=== PATIENT | female | born 1975 | race Two or more races ===

== ENCOUNTER → 2025-04-06 | Outpatient (CLI) | payer BC, SELFPAY ==
--- NOTE | 2025-04-06 08:00 | XR_ITS ---
Examination: Screening digital mammography, bilateral Computer aided detection 3-D breast Tomosynthesis, bilateral Date and time of exam: April 06, 2025 0756 hours Compared to mammograms dating to June 09, 2019 Indication: Screening Technique: Nonmagnified MLO, CC views of the breasts to been obtained, reconstructed from 3-D Tomosynthesis images. R2 computer aided detection program utilized for evaluation of suspicious masses and/or abnormal calcifications. 3-D Tomosynthesis images obtained. Findings: Scattered areas of fibroglandular density. Intact appearing implants. No interval suspicious masses Impression: BI-RADS category II: Benign Findings. Recommend 1 year follow-up mammogram.
== END | disposition home or self-care (01) ==
LOC: CDIM 07:49
PROVIDERS: Referring Provider Physician Assistant Medical; Visit Provider Physician Assistant Medical
DX: Z12.31 Encounter for screening mammogram for malignant neoplasm of breast (principal); R92.323 Mammographic fibroglandular density, bilateral breasts; Z98.82 Breast implant status
CPT/HCPCS: 77063; 77067

== ENCOUNTER 2025-04-10 08:00 | Emergency (ER) | payer BC, SELFPAY ==
[2025-04-10 08:09] VITALS: BP 121/77; PULSE 74; RESP 17; TEMP 36.6; O2SAT 100
--- NOTE | 2025-04-10 08:13 | XR_ITS ---
Examination: CT abdomen and pelvis without contrast. Coronal 3-D reconstructions. Sagittal 2-D reconstructions. Date and time of exam:April 10, 2025 0825 hours INDICATIONS: Onset left-sided flank pain nausea vomiting today CTDI: vol (mGy): 8.96 DLP: (mGycm): 479 Technique: Axial images of the abdomen have been obtained, 3 mm slice thickness Intravenous contrast material has not been administered. Low dose protocols were performed. One or more of the following dose reduction techniques were used; automated exposure control, adjustment of the mA and/or KV according to patient size, use of iterative reconstruction technique. Findings: No focal liver or splenic lesions No gallstones No pancreatic or adrenal mass Tiny 1 to 3 mm bilateral renal calculi Minimal left hydronephrosis secondary to 3 mm proximal left ureteral calculus No bowel obstruction No CT findings of appendicitis or diverticulitis No bladder calculi IMPRESSION: Minimal left hydronephrosis secondary to 3 mm proximal left ureteral calculus
[2025-04-10 08:14] VITALS: BMI 26.1
--- NOTE | 2025-04-10 08:14 | PD.EDRME ---
Rapid Medical Screening Exam RME Arrival date/time: 04/10/25 08:00 49-year-old female presents to the emergency department today for complaints of left flank pain Chief Complaint: Abdominal Pain Time Seen by Provider: 04/10/25 08:05 Vital signs: Vital Signs Temperature 97.8 F 04/10/25 08:09 Pulse Rate 74 04/10/25 08:09 Respiratory Rate 17 04/10/25 08:09 Blood Pressure 121/77 04/10/25 08:09 Pulse Oximetry (%) 100 04/10/25 08:09 Oxygen Delivery Method Room Air 04/10/25 08:09
[2025-04-10] MEDS: HYDROcodone/APAP 5/325 TABLET 1 TAB PO (08:18)
[2025-04-10] MEDS: ONDANSETRON ODT 4 MG TABRAP PO (08:19)
[2025-04-10] MEDS: KETOROLAC INJ 30 MG/ML VIAL IM (08:19)
--- NOTE | 2025-04-10 09:15 | PC.NURSE ---
PATIENT BROUGHT TO ROOM WITH COMPLAINT OF PAIN TO LOWER LEFT QUADRANT PAIN SINCE THIS MORNING. PATIENT STATES SHE HAD SUDDEN ONSET OF PAIN. NAUSEA AND VOMITING X 1. IV ESTABLISHED, PATIENT STATES PAIN HAS DECREASED FOLLOWING IM MEDICATION. WILL CONTINUE TO MONITOR
[2025-04-10 09:17] LABS: Basophils # (Auto) 0.1 Thou/mm3 (0.0-0.2); Basophils % (Auto) 0 % (0-2.5); Eosinophils # (Auto) 0.1 Thou/mm3 (0.0-0.5); Eosinophils % (Auto) 1 % (0-10); Hematocrit 40.3 % (36.0-46.0); Hemoglobin 14.1 g/dL (12.0-16.0); Immature Granulocytes % (Auto) 0 % (0-0); Immature Granulocytes Auto 0.05 Thou/mm3 (0.00-0.00); Lymphocytes # (Auto) 1.5 Thou/mm3 (1.0-4.8); Lymphocytes % (Auto) 13 % (10-50); Mean Corpuscular Hemoglobin 29.1 pg (25.0-35.0); Mean Corpuscular Volume 83 fL (80-100); Monocytes # (Auto) 0.5 Thou/mm3 (0.0-0.8); Monocytes % (Auto) 5 % (0-12); Neutrophils # (Auto) 9.3 Thou/mm3 (1.8-7.7); Neutrophils % (Auto) 81 % (37-80); Nucleated Red Blood Cell % 0 /100 WBC (0); Platelet Count 300 Thou/mm3 (140-440); RDW Standard Deviation 41.6 fL (36.4-46.3); Red Blood Count 4.85 Miln/mm3 (4.00-5.20); White Blood Count 11.4 Thou/mm3 (3.6-11.0)
[2025-04-10 09:25] LABS: Alanine Aminotransferase 10 U/L (10-49); Albumin, Serum 4.7 gm/dL (3.5-5.0); Albumin/Globulin Ratio 2.1 (1.2-2.2); Alkaline Phosphatase 72 U/L (46-116); Anion Gap 11 (7-16); Aspartate Amino Transferase 17 U/L (0-34); BUN/Creatinine Ratio 11 Ratio (12-20); Bilirubin,Total 1.2 mg/dL (0.3-1.2); Blood Urea Nitrogen 12 mg/dL (9-23); Calcium 9.8 mg/dL (8.3-10.6); Calcium (Corrected) 9.8 mg/dL (8.5-10.1); Carbon Dioxide 21.7 mMol/L (20.0-31.0); Chloride 106 mMol/L (98-107); Creatinine (Component) 1.1 mg/dL (0.6-1.3); Estimated Creatinine Clearance 64.2 mL/min (>60); Globulin 2.2 gm/dL (2.3-3.5); Glucose 119 mg/dL (74-106); Lipase 34 U/L (12-53); Osmolality,Calculated 278 (275-295); Potassium 4.1 mMol/L (3.4-5.1); Sodium 139 mMol/L (136-145); Total Protein 6.9 gm/dL (5.7-8.2); eGFR > 60 See Note
[2025-04-10 10:12] VITALS: BP 126/82; PULSE 73; RESP 17; TEMP 36.6; O2SAT 97
--- NOTE | 2025-04-10 10:17 | EDNOTE_ITS ---
ED General RME/HPI General Chief complaint: Abdominal Pain Stated complaint: Vomiting today, Left side abdominal pain/flank Time Seen by Provider: 04/10/25 08:05 Arrival date/time: 04/10/25 08:00 RME / HPI RME / HPI narrative: 04/10/25 08:00 49-year-old female presents to the emergency department today for complaints of left flank pain DR. DEE MAIN ED EVALUATION: 49 year old female with past medical history significant for appendectomy presents to the Emergency Department accompanied by her with complaint of left flank pain since 630 AM today. Associated symptoms include nausea and vomiting. No other symptoms reported at this time. Related Data Previous Rx's ?Medication ?Instructions ?Recorded hydrocodone 5 mg-acetaminophen 325 1 tab PO Q6H PRN pa in #14 tabs 04/10/25 mg tablet ondansetron 4 mg disintegrating 4 mg PO Q6H PRN nausea and 04/10/25 tablet vomiting #20 tabs Allergies Allergy/AdvReac Type Severity Reaction Status Date / Time NKA Allergy Unknown Uncoded 04/10/25 08:05 No Known Allergies Allergy Unknown Uncoded 04/10/25 08:05 Review of Systems Review of Systems Systems Reviewed: All systems reviewed, normal except as documented Narrative Review of Systems: Constitutional: DENIES: fevers; Eyes: DENIES: loss of vision; Head/Ear/Nose: DENIES: loss of hearing. Throat: DENIES: dysphagia. Cardiovascular: DENIES: chest pain, dyspnea, or syncope. Respiratory: DENIES: shortness of breath; Gastrointestinal: POSITIVES: left flank pain, nausea, and vomiting DENIES: rectal bleeding or melena. Genitourinary: DENIES: dysuria (painful or difficult urination); Musculoskeletal: DENIES: arthralgia (pain in a joint); Skin: DENIES: rash; Neurological: DENIES: loss of function or movement; Psychiatric: DENIES: recent major life stressor, emotional problem, illicit drug use or abuse; Endocrinology: DENIES: weight change,; Hematologic/Lymphatic: DENIES: abnormal bruising. Allergic/Immunologic: DENIES: urticaria (hives). Past Medical History Social History SMOKING STATUS: Never smoker SUBSTANCE USE: does not use ALCOHOL: Never ED Exam Narrative Physical exam: Physical Exam: General: The vital signs were reviewed. The patient is non-toxic, in no apparent distress and appears healthy with a patent airway, no respiratory distress and has no apparent circulatory problems. Head & Scalp: Normocephalic, atraumatic. Face: Appears normal and is without lesions, deformity. Ears: Left external pinna appears normal. Right external pinna appears normal. Eyes: The sclera is anicteric. No obvious photophobia. The Left and Right Orbit/Lid/Conjunctiva appears normal without swelling, discoloration or injection. Nose: The nose is without deformity, discharge or tenderness; Throat: Appears normal. The mucous membranes are pink and moist without exudates, redness or mass seen. The tongue appears normal. Neck: The neck is supple and no apparent mass or adenopathy. Chest: The chest wall is normal in size and symmetry and has no chest wall tenderness or crepitus. The patient displays normal ventilator effort without retractions, accessory muscle use and has adequate air movement bilaterally with no wheezes and no rales. Cardiovascular: Regular rate and rhythm; No murmurs, rubs, or gallops; Gastrointestinal: The abdomen appears normal. No obvious hernias or mass. The abdomen is soft and benign, non-distended, with no pain, no guarding and no rebound tenderness. Bowel sounds are present and normal sounding. No CVA tenderness. Genitourinary: Back/Spine: Extremities/Musculoskeletal/lymphatic: The bilateral upper and lower extremities are warm. There is no evidence of arterial insufficiency. There is no evidence of venous insufficiency/edema. The patient spontaneously moves bilateral upper and lower extremities with no pain and no limitation of movement. There is no apparent, injury or trauma. Skin: The skin is warm, dry and intact. No rashes. No petechia. No purpura. No abnormal bruising. The color is appropriate with no cyanosis. Mental status/Psychiatric: Mental status is appropriate for age. The patient has no apparent delusions, visual hallucinations, no apparent audible hallucinations. The patient has no apparent suicidal thoughts/ideation and no apparent homicidal thoughts/ideation. Neurological: The patient is awake, alert, interactive, cordial, cooperative and is oriented to name and situation. The patient follows commands and answers historical question with no impairment. There is no visual disturbance apparent. The pupils are equal and reactive bilaterally with normal eye movements and no diplopia The bilateral upper and lower extremities have normal strength, normal range of motion and normal functioning. The gait, station and balance appear to be baseline with no acute change Course Quality Measures none Orders Category Date Time Status IV [Insert IV] NOW Care 04/10/25 09:[address] abdomen pelvis wo con Stat Exams 04/10/25 08:13 Completed CBC Stat Lab 04/10/25 08:37 Completed Comprehensive Metabolic Panel Stat Lab 04/10/25 08:37 Completed Lipase Stat Lab 04/10/25 08:37 Completed HYDROcodone*/APAP 5/325 [[place] 5/325] Med 04/10/25 08:13 Discontinued 1 tab PO X1 ONE Ketorolac Inj [Toradol Inj] Med 04/10/25 08:13 Discontinued 30 mg IM X1 ONE Ondansetron Odt [Zofran Odt] Med 04/10/25 08:13 Discontinued 4 mg PO X1 ONE Vital Signs Vital signs: Vital Signs Temperature 97.8 F 04/10/25 08:09 Pulse Rate 74 04/10/25 08:09 Respiratory Rate 17 04/10/25 08:09 Blood Pressure 121/77 04/10/25 08:09 Pulse Oximetry (%) 100 04/10/25 08:09 Oxygen Delivery Method Room Air 04/10/25 08:09 Discharge Plan Plan Patient Disposition: HOME (Self Care) Prescriptions/Referrals Prescriptions/Med Rec: New hydrocodone-acetaminophen 5-325 mg tablet 1 tab PO Q6H MDD 4 PRN (Reason: pain) Qty: 14 0RF ondansetron 4 mg tablet,disintegrating 4 mg PO Q6H PRN (Reason: nausea and vomiting) Qty: 20 0RF Referrals: No Primary/Family,Physician [Primary Care Provider] - In 1 week Problem List Clinical Impression: Calculus of proximal left ureter, Calculus of both kidneys Patient/Caregiver Discharge Instructions Education Materials: ED Kidney Stone w/ Colic Additional Instructions: As discussed avoid taking any extra direct calcium at this time. Strain your urine and collect the stone if present. Please stay very hydrated to avoid forming any further stones. Return if you are getting worse. See your doctor next 2 to 3 days for reevaluation Print Language: Estonian Stand Alone Forms: [employer] Award Info., Patient Portal Info Letter MDM Narrative MDM hospital course: Patient presents with acute onset left flank pain radiating to her groin this morning never had this before. She is got an obvious 3 mm stone in the proximal ureter and bilateral parenchymal stones 1 to 3 mm. Vital signs and labs otherwise were unremarkable with a white count of 11.4 hemoglobin of 14.1 electrolytes are within normal limits BUN is 12 creatinine 1.1 glucose was 119 transaminases bilirubin are negative lipase was negative. Patient got some Toradol IV fluids and feels much better. At 1040 hrs. she is drinking fluids without any nausea or vomiting and she wants to go home. She does take ibuprofen. She also knows the stone is more proximal may take a little longer before it passes. She knows to return if getting worse. Hafsa Adams am scribing for and in the presence of Dr. Dee. Clinical Information Provided by patient and spouse Medical Records Reviewed [facility] Meds/Rx Considered, not Ordered None Labs/Rad/Tests considered, not Ordered None Chronic Illness/Social Conditions Add or document further as needed: appendectomy EKG EKG not done Lab Interpretation Labs: see narrative above Imaging Imaging interpretation: see narrative above Radiology reports / interpretation(s): Procedure(s): CT abdomen pelvis [facility] Accession Number(s): [id number] cc: Tahmina (JOSE),Linwood GARCIA; Marcel Monzon MD; NO PRIMARY/FAMILY,PHYSICIAN~ Examination: CT abdomen and pelvis without contrast. Coronal 3-D reconstructions. Sagittal 2-D reconstructions. Date and time of exam:April 10, 2025 0825 hours INDICATIONS: Onset left-sided flank pain nausea vomiting today CTDI: vol (mGy): 8.96 DLP: (mGycm): 479 Technique: Axial images of the abdomen have been obtained, 3 mm slice thickness Intravenous contrast material has not been administered. Low dose protocols were performed. One or more of the following dose reduction techniques were used; automated exposure control, adjustment of the mA and/or KV according to patient size, use of iterative reconstruction technique. Findings: No focal liver or splenic lesions No gallstones No pancreatic or adrenal mass Tiny 1 to 3 mm bilateral renal calculi Minimal left hydronephrosis secondary to 3 mm proximal left ureteral calculus No bowel obstruction No CT findings of appendicitis or diverticulitis No bladder calculi IMPRESSION: Minimal left hydronephrosis secondary to 3 mm proximal left ureteral calculus Dictated By: Marcel Monzon MD Medication Administration(s) Medication Administration History Discontinued Medications Hydrocodone Bitart/Acetaminophen (Hydrocodone/Apap 5/325 Tablet) 1 tab PO X1 ONE Stop: 04/10/25 08:14 Last Admin: 04/10/25 08:18 Dose: 1 tab Documented By: KACIE Ketorolac Tromethamine (Ketorolac Inj 30 Mg/Ml Vial) 30 mg IM X1 ONE Stop: 04/10/25 08:14 Last Admin: 04/10/25 08:19 Dose: 30 mg Documented By: KACIE Ondansetron HCl (Ondansetron Odt 4 Mg Tabrap) 4 mg PO X1 ONE; Protocol Stop: 04/10/25 08:14 Last Admin: 04/10/25 08:19 Dose: 4 mg Documented By: KACIE Diagnosis Differential diagnosis: kidney stones, pyelonephritis, UTI Most likely dx, and/or detailed dx discussion: Calculous of proximal left ureter Calculus of both kidneys Dispositon Disposition: Discharge Home
--- NOTE | 2025-04-10 10:31 | PC.NURSE ---
DR. ABURTO IN ROOM ASSESSING PATIENT. PATIENT ABLE TO AMBULATE WITH NO PAIN, OFFERED JUICE AND WILL EVALUATE PATIENT FOR NAUSEA. PATIENT WITH NO PAIN AT THIS TIME.
--- NOTE | 2025-04-10 10:54 | PC.NURSE ---
PATIENT GIVEN JUICE PER DR ORDER, PATIENT DENIES NAUSEA AT TIME OF REASSESSMENT.
[2025-04-10 11:04] VITALS: PULSE 68; RESP 18; O2SAT 99
== END 2025-04-10 11:06 | disposition home or self-care (01) ==
PROVIDERS: Nurse Practitioner Primary Care; Emergency Provider Emergency Medicine
DX: N13.2 Hydronephrosis with renal and ureteral calculous obstruction (principal)
CPT/HCPCS: 36415; 74176; 80053; 81001; 83690; 85025; 96372; 99284; J1885; Q0162; A9270